=== PATIENT | male | born 1960 | race Caucasian/White ===

== ENCOUNTER 2019-07-02 01:12 | Emergency (ER) | payer MEDICAID ==
[~2019-07-02] VITALS: Ht 157.5 cm; Wt 55.3 kg
[2019-07-02 01:14] VITALS: BP 138/98
--- NOTE | 2019-07-02 01:15 | NUR ---
PT WILFREDO FRENCHS. TAKEN TO BED 4
--- NOTE | 2019-07-02 01:15 | NUR ---
Pt bib BLS ambulance from home c/o Lt flank pain. Pt no complains of CP, SOB. Pt hook on monitor, gowned, and pt care to Meghana ANDUJAR.
--- NOTE | 2019-07-02 01:23 | NUR ---
58Y/O MALE BROUGHT INTO ER BY S 491. BLS STATES PT WAS PICKED UP FROM A RESIDENTIAL HOME IN [place]. PT ASKED BROTHER TO [id number] DUE TO HAVING LEFT FLANK PAIN. PT STATES LEFT FLANK PAIN IS 7/10, AND HAS HAD X 1DAY. DENIES INJURY/TRAUMA, PAIN RADIATING TO ANY OTHER LOCATION IN THE BODY. DENIES, BACK PAIN, SOB, ANY DIFFICULTY WITH URINATION, OR UPPER OR LOWER ABDOMINAL PAIN. DENIES N/V/D. R/R EQUAL AND UNLABORED. C/O HEADACHE, AND SORE THROAT. PT'S HANDS ARE COVERED IN WHAT LOOKS LIKE BLACK SPRAY PAINT. ALL FOUR EXTREMITIES ARE INVOLUNTARILY JERKING. PT STATES HE IS HOMELESS. PT STATES HE IS NON-COMPLIANT WITH MEDICATION REGIMEN. SIDE RAIL X2, WILL CONTINUE TO MONITOR. NKDA PMHX: YUE DISEASE; HTN
--- NOTE | 2019-07-02 01:28 | NUR ---
Dr. Hinson examining patient.
--- NOTE | 2019-07-02 01:45 | NUR ---
PT GIVEN MEAL. IN BED EATING FOOD, SIDE RAIL X 2 WILL CONTINUE TO MONITOR, BED IN LOW POSITION
--- NOTE | 2019-07-02 02:24 | NUR ---
PT LAYING IN BED ALL FOUR EXTREMITIES JERKING INVOLUNTARY. VSS. SIDE RAIL X2, BED IN LOW POSITION WILL CONTINUE TO MONITOR
--- NOTE | 2019-07-02 03:00 | NUR ---
Pt wanted taxi voucher. Yeison Montalvo made aware and taxi voucher given. Taxi cab was contacted and the ETA will take times as no milk truck driver available due to self quarantine and stay home order. Will do follow up call to update the pt and his family. PRATIMA Kowalski and the pt made aware. Pt given sandwitch and juices/taken/eaten by the pt.
--- NOTE | 2019-07-02 03:08 | NUR ---
PT SLEEPING, R/R EQUAL,AND UNLABORED. ALL FOUR EXTREMITIES ARE NOT JERKING INVOLUNTARY AT THIS TIME. WILL CONTINUE TO MONITOR, BED IN LOW POSITION, SIDERAIL X2
[2019-07-02 06:30] VITALS: BP 138/98
--- NOTE | 2019-07-02 06:30 | NUR ---
Patient discharged with v/s stable. Written and verbal after care instructions given and explained. Patient verbalized understanding. WHEELCHAIR to car. All questions addressed prior to discharge. Advised to follow up with PMD.
--- NOTE | 2019-07-02 06:30 | NUR ---
PT D/C AND TAKEN IN TAXI TO [facility] IN [place]. PT IS CURRENTLY STAYING THERE IN A LONGTERM.
== END 2019-07-02 06:30 | disposition home or self-care (01) ==
LOC: MED 01:12
DX: R10.9 Unspecified abdominal pain (principal); F15.10 Other stimulant abuse, uncomplicated; Z59.0 Homelessness
CPT/HCPCS: 82948; 99283

== ENCOUNTER 2021-01-01 12:10 | Inpatient (IN) | payer MEDICAID, SELFPAY ==
[~2021-01-01] VITALS: Ht 160 cm; Wt 56.2 kg
[2021-01-01 12:20] VITALS: BP 131/74
--- NOTE | 2021-01-01 12:20 | NUR ---
60 Y/O MALE BIB CAREGIVER FOR POSS DEHYDRATION AND MALNOURISHED. CAREGIVER AT BEDSIDE ONLY ABLE TO GIVE MIN INFORMATION. PT UNABLE TO CONTROL MOVEMENTS. PER CAREGIVER, PT INGESTS METH AND 2 PINTS OF HARD LIQUOR PERDAY. UNABLE TO AMBULATE WITHOUT ASSISTANCE. UNABLE TO ANSWER SIMPLE YES OR NO QUESTIONS. POOR HISTORIAN. PMHX: YUE'S, ALCOHOL ABUSE, METH ABUSE ALLERGIES: UNKNOWN HOME MEDICATIONS: UNKNOWN.
--- NOTE | 2021-01-01 12:38 | NUR ---
ERMD AT BEDSIDE TO ASSESS PT
[2021-01-01] MEDS ORDERED: HALOPERIDOL IM 5 MG/ML VIAL IM ONE (12:45)
[2021-01-01] MEDS ORDERED: NACL 0.9% 1,000 ML IV ONE (12:45)
[2021-01-01] MEDS ORDERED: LORazepam 2 MG/ML VIAL IM ONE (12:45)
--- NOTE | 2021-01-01 12:49 | NUR ---
ERMD AT BEDSIDE TO ASSESS PT
--- NOTE | 2021-01-01 13:51 | NUR ---
20 G IV ESTABLISHED TO Daren RAINEY SAMPLE COLLECTED ALONG WITH LAB SAMPLES VIA IV AND HANDED TO JUSTIN ALEMAN TECH.
[2021-01-01 14:00] LABS: BASOPHILS # (AUTO) 0.1 K/uL (0.00-0.22); EOSINOPHILS # (AUTO) 0.1 K/uL (0-0.4); HEMATOCRIT 34.1 % (36-52); HEMOGLOBIN 11.5 g/dL (12.0-18.0); LYMPHOCYTES # (AUTO) 1.9 K/uL (2.0-11.5); LYMPHOCYTES % (AUTO) 24.2 % (20.5-51.1); MEAN CORPUSCULAR HEMOGLOBIN 30 pg (27-31); MEAN CORPUSCULAR HGB CONC 34 g/dL (33-37); MEAN CORPUSCULAR VOLUME 90.1 fL (80-94); MONOCYTES # (AUTO) 0.9 K/uL (0.8-1.0); MONOCYTES % (AUTO) 11.9 % (1.7-9.3); NEUTROPHILS # (AUTO) 4.9 K/uL (1.8-7.7); NEUTROPHILS % (AUTO) 61.9 % (42.2-75.2); PLATELET COUNT (AUTO) 436 K/uL (140-450); RED BLOOD CELL COUNT(AUTO) 3.79 MIL/uL (4.20-6.10); RED CELL DISTRIBUTION WIDTH 15.4 % (11.6-13.7)
[2021-01-01 14:32] LABS: ALBUMIN 3.6 g/dL (3.4-5.0); ANION GAP 12.1 (8-16); CARBON DIOXIDE 27.9 mmol/L (21-32); CREATININE 0.8 mg/dL (0.6-1.3); TOTAL BILIRUBIN 0.6 mg/dL (0.0-1.0)
--- NOTE | 2021-01-01 14:48 | NUR ---
PT TAKEN TO CT FOR EXAM
[2021-01-01] MEDS ORDERED: LORazepam 2 MG/ML VIAL IVP PRN (15:35)
[2021-01-01] MEDS ORDERED: HYDROcodone/APAP 5/325 MG 1 TAB TAB PO PRN (15:35)
[2021-01-01] MEDS ORDERED: MORPHINE SULFATE 2 MG/ML SYR IVP PRN (15:35)
[2021-01-01] MEDS ORDERED: LISI2.5T12 PO (15:53)
--- NOTE | 2021-01-01 16:05 | NUR ---
PT HAS 506$ VERIFIED BY SECURITY AND DAVID AISLINN, NEXT OF KIN BROTHER (FABIO) TO SAFEGAURD IT FOR HIM.
--- NOTE | 2021-01-01 16:18 | NUR ---
Patient will be admitted to care of Dr Prado. Admited to TELE. Will go to room 113 A. Belongings list completed. Report to .
--- NOTE | 2021-01-01 16:20 | NUR ---
RECEIVED REPORT FROM [facility]
--- NOTE | 2021-01-01 16:34 | NUR ---
PATIENT AWAKE. BREATHING EVEN AND UNLABORED. PATIENT NOTED TO BE AGGRESSIVE. NO ABNORMAL HEART SOUNDED NOTED. LUNG SOUNDS CLEAR. BOWEL SOUNDS HEARD IN ALL FOUR QUADRANTS. PATIENT SKIN IS WARM TO TOUCH. PATIENT DIFFICULT TO ASSESS MINIMAL REPOSE. WILL RESPOND YES AND NO TO SOME QUESTIONS. PATIENT REQUIRES REORIENTATION. EDUCATED PATIENT TO ROOM ENVIRONMENT. PATIENT DOES NOT VERBALIZE UNDERSTANDING. CALL LIGHT WITHIN REACH. ALL SAFETY MEASURES IN PLACE. WILL CONTINUE TO MONITOR.
[2021-01-01 17:10] LABS: APPEARANCE,URINE CLEAR (CLEAR); BILIRUBIN,URINE NEGATIVE (NEGATIVE); BLOOD, URINE TRACE-I (NEGATIVE); COLOR,URINE YELLOW (YELLOW); LEUKOCYTE ESTERASE ,URINE NEGATIVE (NEGATIVE); NITRITE, URINE NEGATIVE (NEGATIVE); PH,URINE 6.5 (5.0-9.0); UGLUCOSE NEGATIVE (NEGATIVE)
--- NOTE | 2021-01-01 18:05 | NUR ---
PATIENT SLEEPING. NO ACUTE DISTRESS NOTED. BREATHING EVEN AND UNLABORED. CALL LIGHT WITHIN REACH. ALL SAFETY MEASURES IN PLACE. WILL CONTINUE TO MONITOR.
--- NOTE | 2021-01-01 19:15 | NUR ---
ENDORSED TO SALES ACCOUNT MANAGER NURSE ON CONTINUITY OF CARE. PATIENT SLEEPING. PATIENT STABLE. CALL LIGHT WITHIN REACH. SAFETY MEASURES IN PLACE.
--- NOTE | 2021-01-01 19:25 | NUR ---
RECEIVED REPORT FROM ELISE ANDUJAR FOR CONTINUITY OF CARE. PT SITTING UP AAOX2. NO APPARENT S/S OF ACUTE DISTRESS. BREATHING EVEN AND UNLABORED ON RA WITH O2 SAT OF 97%. NO C/O CP, SOB OR PAIN. L AC 20G INTACT/PATENT. POC AND WHITE COMMUNICATION BOARD UPDATED. BED IN LOW/LOCKED POSITION. CALL LIGHT WITHIN REACH. PT ENCOURAGED TO CALL FOR ANY NEEDS/ASSISTANCE. WILL CONTINUE TO MONITOR.
[2021-01-01 20:00] VITALS: BP 141/91
[2021-01-01 22:30] LABS: BARBITURATE, URINE NEGATIVE ng/ml (NEG <=200); BENZODIAZEPINE, URINE POSITIVE ng/mL (NEG <=200); CANNABINOID, URINE NEGATIVE ng/mL (NEG <=50); COCAINE, URINE NEGATIVE ng/mL (NEG <=300)
[2021-01-01 22:31] LABS: OPIATE, URINE NEGATIVE ng/mL (NEG <=2000); PHENCYCLIDINE SCREEN,URINE NEGATIVE ng/mL (NEG <=25)
[2021-01-02] VITALS: BP 141/75
[2021-01-02] MEDS ORDERED: ONDANSETRON 4 MG/2 ML VIAL IM/IVP PRN (01:25)
[2021-01-02] MEDS ORDERED: ACETAMINOPHEN 325 MG TAB PO PRN (01:25)
[2021-01-02] MEDS ORDERED: HYDROcodone/APAP 5/325 MG 1 TAB TAB PO PRN (01:25)
[2021-01-02] MEDS: NACL 0.9% 1,000 ML IV SCH ×3 (01:25→18:45)
[2021-01-02] MEDS ORDERED: ZOLPIDEM 5 MG TAB PO PRN (01:25)
[2021-01-02] MEDS ORDERED: DOCUSATE SODIUM 100 MG GELCAP PO PRN (01:25)
[2021-01-02 04:00] VITALS: BP 119/73
[2021-01-02 06:54] LABS: CREATININE 0.7 mg/dL (0.6-1.3)
[2021-01-02 06:59] LABS: BASOPHILS # (AUTO) 0.1 K/uL (0.00-0.22); BASOPHILS % (AUTO) 0.8 % (0.0-2.0); EOSINOPHILS # (AUTO) 0.2 K/uL (0-0.4); EOSINOPHILS % (AUTO) 3.3 % (0.0-4.0); HEMATOCRIT 36.4 % (36-52); HEMOGLOBIN 12.2 g/dL (12.0-18.0); LYMPHOCYTES # (AUTO) 2.1 K/uL (2.0-11.5); LYMPHOCYTES % (AUTO) 29.2 % (20.5-51.1); MAGNESIUM 2.2 mg/dL (1.8-2.4); MEAN CORPUSCULAR HEMOGLOBIN 31 pg (27-31); MEAN CORPUSCULAR HGB CONC 34 g/dL (33-37); MEAN CORPUSCULAR VOLUME 91.4 fL (80-94); MONOCYTES # (AUTO) 0.7 K/uL (0.8-1.0); MONOCYTES % (AUTO) 10.2 % (1.7-9.3); NEUTROPHILS # (AUTO) 4.2 K/uL (1.8-7.7); NEUTROPHILS % (AUTO) 56.5 % (42.2-75.2); PHOSPHORUS 3.1 mg/dL (2.5-4.9); PLATELET COUNT (AUTO) 443 K/uL (140-450); RED BLOOD CELL COUNT(AUTO) 3.99 MIL/uL (4.20-6.10); RED CELL DISTRIBUTION WIDTH 15.5 % (11.6-13.7); WHITE BLOOD COUNT (AUTO) 7.4 K/uL (4.8-10.8)
--- NOTE | 2021-01-02 07:02 | NUR ---
REPORT GIVEN TO ELISE ANDUJAR FOR CONTINUITY OF CARE. NO APPARENT S/S OF ACUTE DISTRESS. BREATHING EVEN AND UNLABORED. BED IN LOW/LOCKED POSITION. CALL LIGHT WITHIN REACH. ALL NEEDS MET AT THIS TIME.
[2021-01-02 07:07] LABS: CHOL/HDL RATIO 2.3 (1-4.5); THYROID STIMULATING HORMONE 1.27 uIU/mL (0.34-3.74)
[2021-01-02 07:09] LABS: PROTHROMBIN TIME 9.9 secs (10.8-13.4)
--- NOTE | 2021-01-02 07:15 | NUR ---
RECEIVED REPORT FROM CARE AID NURSE FOR CONTINUITY OF CARE. PATIENT SLEEPING. BREATHING EVEN AND UNLABORED. NO ACUTE DISTRESS NOTED. CALL LIGHT WITHIN REACH. SAFETY MEASURES IN PLACE. WILL CONTINUE TO MONITOR.
[2021-01-02 08:00] VITALS: BP 112/65
[2021-01-02] MEDS: lisinopriL 5 MG TAB PO SCH (09:00)
--- NOTE | 2021-01-02 09:00 | NUR ---
LISINOPRIL HELD DUE TO PATIENT BP BEING LOW 112/65
--- NOTE | 2021-01-02 09:15 | NUR ---
PATIENT HAS BEEN SCREENED AND CATEGORIZED HIGH NUTRITION RISK. PATIENT WILL BE SEEN WITHIN 1-2 DAYS OF ADMISSION. 01/02/21-01/03/[address]
--- NOTE | 2021-01-02 09:26 | NUR ---
PATIENT SLEEPING. NO ACUTE DISTRESS NOTED. BREATHING EVEN AND UNLABORED. CALL LIGHT WITHIN REACH. ALL SAFETY MEASURES IN PLACE. WILL CONTINUE TO MONITOR.
--- NOTE | 2021-01-02 11:11 | NUR ---
PATIENT AWAKE. PATIENT CONTINUE TO HAVE INVOLUNTARY MOVEMENTS . PATIENT DENIES PAIN AT THIS TIME. CALL LIGHT WITHIN REACH. ALL SAFETY MEASURES IN PLACE. WILL CONTINUE TO MONITOR.
[2021-01-02 12:00] VITALS: BP 126/68
--- NOTE | 2021-01-02 13:29 | NUR ---
PATIENT AWAKE. PATIENT CONTINUE TO HAVE INVOLUNTARY MOVEMENTS . PATIENT DENIES PAIN AT THIS TIME. PATIENT REQUIRES REORIENTATION. CALL LIGHT WITHIN REACH. ALL SAFETY MEASURES IN PLACE. WILL CONTINUE TO MONITOR.
--- NOTE | 2021-01-02 13:39 | NUR ---
LATE ENTRY- SODIUM CHLORIDE IV FLUIDS DISCONTINUED AT 1618.
--- NOTE | 2021-01-02 14:28 | NUR ---
DC PLANNING: THE PATIENT PRESENTED TO THE ER WITH C/O DECREASED PO INTAKE. THE PATIENT HAS A H/O [place] AND HTN, AND IS CURRENTLY HOMELESS. CM AND SW SPOKE WITH THE PATIENTS BROTHER FABIO ([phone]) BY PHONE REGARDING THE PATIENTS MEDICAL HISTORY AND LIVING SITUATION. THE PATIENT STARTED THE INTAKE PROCESS WITH [facility] BUT FABIO IS NOT SURE IS HE COMPLETED IT. FABIO STATES THAT HIS GOAL IS FOR HOUSING FOR HIS BROTHER AND HIMSELF, HE HAS BEEN FOLLOWED BY [facility] FOR AT LEAST 2 YEARS BUT HAS NO PURSUED HOUSING THROUGH THEM SO HE COULD TAKE CARE OF HIS BROTHER. HE AND HIS BROTHER STAY AT THE [facility] IN [place] ([address] [place] [address]) 3-4 DAYS/WEEK AND SLEEP ON THE STREET THE OTHER DAYS. THE PATIENT DOES NOT ALWAYS STAY WITH HIS BROTHER, IT IS UNCERTAIN WHERE HE SLEEPS DURING THOSE TIMES. FABIO STATES THAT THE PATIENT DOES DRINK ALCOHOL REGUARLY, BEER OR VODKA, BUT DOES NOT USE DRUGS DAILY. BOTH ARE ON SSI AND FABIO RECEIVES FOOD STAMPS. HE STATES THAT THE PATIENT USES A WC AND IS ABLE TO MOVE HIMSELF AROUND WITHOUT ASSISTANCE. FABIO ALSO STATES THAT THEY HAVE OTHER FRIENDS WHO ARE HOMELESS AND THEY CHECK ON THE PATIENT WHEN FABIO IS NOT PRESENT TO OFFER HIM FOOD AND SOMETHING TO DRINK. THE PATIENT WAS GOING TO THE [facility] BUT HAS NOT SEEN A DOCTOR SINCE HE WAS DIAGNOSED WITH YUE'S ABOUT FIVE YEARS AGO. FABIO STATES THAT THEIR SISTER AND FATHER BOTH HAD YUE'S AND HAVE SINCE . THE PATIENT HAS ADULT CHILDREN WHO ARE ESTRANGED, AND THEIR MOTHER IS STILL ALIVE. FABIO CAN STAY WITH THEIR MOTHER IF HE CHOOSES BUT THERE IS A RESTRAINING ORDER AGAINST THE PATIENT SO FABIO DOES NOT TO STAY WITH HER SO HE CAN CARE FOR THE PATIENT. THE [facility] THAT THEY SOMETIMES STAY IN WAS RUN BY A COREMAKER APPRENTICE WHO 2 WEEKS AGO, AND THE PASTORS SON IS ALLEGEDLY GOING TO SELL IT, SO THAT WILL NOT BE A SENIOR CARE OPTION FOR SHELTERING. THE ASHLEY HIDALGO WILL REACH OUT TO [facility] TO SEE IF THEY CAN OFFER ANY OPTIONS FOR SNF PLACEMENT, AND CM WILL WORK WITH INSURANCE TO SEE IF THEY WILL AUTHORIZE SNF PLACEMENT. FABIO STATES THAT THE PATIENT IS WILLING TO GO SNF AND THAT THE PATIENT HAS STATED THAT HE DOESN'T WANT TO ON THE STREET. CM WILL FOLLOW FOR NEEDS. Addendum: 01/03/21 at 1308 by Kimberley Lopez CM DC PLANNING: ERROL AND ASHLEY MET WITH ROCKY OWENS, MENTAL HEALTH SPECIALIST FROM [facility]. HE STATES THAT THE PATIENT HAS BEEN AT [facility] 8-9 TIMES VERY RECENTLY AND HAS BEEN DC'D BACK TO THE STREET EACH TIME. DISCUSSED OPTIONS OF SNF VERSUS THE PATIENT GOING WITH FAMILY, ALSO CONTACTING THE [facility] TO SEE IF THEY HAVE RESOURCES. ERROL WILL FOLLOW UP WITH THE PATIENTS INSURANCE FOR POTENTIAL SNF PLACEMENT. ERROL ALSO DISCUSSED THE PLAN WITH THE ATTENDING MD, AND WILL CONTINUE TO FOLLOW FOR NEEDS. Addendum: 01/03/21 at 1731 by Teresa Durham CM DC PLANNING PATIENT IS A 60-YEAR-OLD MALE ADMITTED TO THE [facility]/ED ON 01/01/2021 DUE TO DEHYDRATION AND FAILURE TO THRIVE. SW MET WITH PATIENT AT BEDSIDE TO DISCUSS AND GATHER PATIENTS COLLATERAL INFORMATION. PATIENT WAS AWAKE, HOWEVER STATED FEELING TIRED AND SLEEPY SW ASKED PATIENT IF THESE SOAKER SODA WORKER CAN CONTACT HER BROTHER LISTED HIS EMERGENCY CONTACT PT. AGREED. SW CONTACTED PATIENT'S BROTHER FABIO CLEANING VIA TELEPHONIC CALL AT . PER FABIO PATIENT IS HOMELESS LIVING WITH HIM AT A [facility] IN [place] WHERE THEIR COREMAKER APPRENTICE HAS ALLOWED THEM TO STAY THERE FOR SOMETIME UNTIL RECENTLY THE [facility] HAS CHANGE OF MANAGEMENT AND WILL BE SOLD AT ONE POINT THEREFORE; PATIENT AND BROTHER FABIO WILL HAVE TO FIND A PLACE TO STAY IN THE FUTURE. PATIENT HOWEVER; HAS A DIAGNOSIS OF YUE'S DISEASE AND IS UNABLE TO CARE FOR HIM SELF WHEN SICK HE IS UNABLE TO WALK AND GET HIS BASICS NEEDS MET. PATIENT IS MALNOURISHED AND DIHYDRATED HAS HAD SEVERAL HOSPITALIZATIONS AT [facility] OVER THE PAST MONTHS. SW PROVIDED INFORMATION AND RESOURCES TO PATIENT'S BROTHER AND DISCUSS DC PLAN. 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 PER PATIENT'S BROTHER FABIO HE HAS APPLY FOR RESOURCES AND SERVICES IN [facility] FOR PATIENT'S MENTAL HEALTH AND SUBSTANCE ABUSE AND IS IN PROCESS TO SEE WHAT RESOURCES CAN BE GETTING FOR MORE STABLE HOUSING, HOWEVER PATIENT'S MEDICAL STATUS IS GETTING WORSE AND IS IN NEED OF HIGHER LEVEL OF CARE AT THIS TIME. SW PROVIDED SOME INFORMATION TO PATIENT'S BROTHER AND GOT INFORMATION TO SPEAK TO [facility] MENTAL HEALTH SPECIALIST, ROCKY OWENS. PER PATIENT'S BROTHER FABIO CLEANING PATIENT DO NOT HAVE ADVANCE DIRECTIVES AND HE IS HIS ONLY EMERGENCY CONTACT. PER PATIENT'S BROTHER PATIENT IS ATTENDING TO [facility] IN [place] TO CARE FOR HIS MEDICAL NEEDS HOWEVER DO NOT FOLLOW UP NEEDED EVEN THO HE CAN GET MEDICATIONS PATIENT MAY NOT BE TAKING THEM CONSISTENTLY, PATIENT HAS A WHEELCHAIR HIS ONLY DME AND IF HE IS TO DC PATIENT CAN GO BACK TO STAY AT THE [facility] IN [place] WITH HIS BROTHER IF HE IS NOT IN NEED FOR HIGHER LEVEL OF CARE POSSIBLY A SNF DUE TO HIS MEDICAL CONDITIONS. SW THANKED PATIENT'S BROTHER FABIO FOR HIS INFORMATION AND WILL FOLLOW UP NEEDED Addendum: 01/03/21 at 1738 by Teresa Durham CM DC PLANNING ROCKY OWENS MENTAL HEALTH SPECIALIST FROM [facility] CAME TO [facility] IN REQUEST TO MEET WITH CM AND ASHLEY ABOUT PATIENT AND HIS CONTINUANCE OF CARE. SW AND CM HAD VERBAL CONSENT TO SPEAK TO ROCKY AND COORDINATE SERVICES PROVIDED TO PATIENT. PER ROCKY HE IS WORKING WITH HIS SOCCER BALL ASSEMBLER AND MENTAL HEALTH TEAM ON GETTING PATIENT'S RESOURCES HOWEVER HIS MEDICAL NEED DUE TO HIS DIAGNOSIS WITH YUE DISEASE IS GETTING IN THE WAY OF THEIR TREATMENT AND CAME TO ADVOCATE FOR PATIENT TO SEE IF MAY BE A HIGHER LEVEL OF CARE NEEDS TO BE ADDRESS BEFORE THEIR TREATMENT. ASHLEY AND ERROL DISCUSS ALTERNATIVES AND POSSIBLE RESOURCES. ROCKY AGREED TO REACH OUT THE FAMILY AND OTHER RESOURCES TO ASSIST PATIENT AND HIS NEEDS. ASHLEY AND CM WILL FOLLOW UP NEEDED.
--- NOTE | 2021-01-02 15:01 | NUR ---
01/02/21 RD INITIAL ASSESSMENT COMPLETED PLEASE REFER TO NUTRITION ASSESSMENT UNDER CARE ACTIVITY FOR ESTIMATED NUTRITIONAL NEEDS. 1. RECOMMEND SWALLOW EVALUATION PER DR. RAMOS CONSULT 2. RECOMMEND DOWNGRADING FOOD TEXTURE D/T CHOREA 2. DOUBLE PORTIONS WILL BE PROVIDED 3. RECOMMEND ENSURE ONCE DAILY 3. RD TO FOLLOW-UP 5-7 DAYS, LOW RISK VANESSA MORALES, RD
--- NOTE | 2021-01-02 15:10 | NUR ---
PATIENT AWAKE. PATIENT CONTINUE TO HAVE INVOLUNTARY MOVEMENTS . PATIENT DENIES PAIN AT THIS TIME. PATIENT CONTINUE TO COME OUT OF ROOM REORIENTATION REQUIRED. CALL LIGHT WITHIN REACH. ALL SAFETY MEASURES IN PLACE. WILL CONTINUE TO MONITOR.
[2021-01-02 16:00] VITALS: BP 124/62
[2021-01-02] MEDS: HALOPERIDOL 5 MG TAB PO SCH (17:27)
--- NOTE | 2021-01-02 17:30 | NUR ---
ENDORSED TO PRATIMA STRICKLAND FOR CONTINUITY OF CARE. PATIENT STABLE.
--- NOTE | 2021-01-02 17:32 | NUR ---
RECEIVED PATIENT FROM PRATIMA OLIVARES FOR CONTINUITY OF CARE. PT IS STABLE.
--- NOTE | 2021-01-02 18:06 | NUR ---
PT WAS SEEN FOR DYSPHAGIA. PT WAS ABLE TO SAFELY SWALLOW PUREE DIET WITH THIN LIQUID. HOWEVER, PT IS NOT AWARE ABOUT THE SPEED AND AMOUNT OF FOOD TO INTAKE IN THE ORAL CAVITY. RECOMMENDATION PUREE DIET WITH THIN LIQUID SUPERVISION DURING MEAL TIME
--- NOTE | 2021-01-02 18:15 | NUR ---
ST EVALUATED PATIENT'S SWALLOW. ST ORDERED PATIENT TO BE ON PUREE DIET.
--- NOTE | 2021-01-02 19:24 | NUR ---
ENDORSED TO FRONT OFFICE SECRETARY NURSE FOR CONTINUITY OF CARE. PT IS STABLE.
--- NOTE | 2021-01-02 19:25 | NUR ---
RECEIVED REPORT FROM AM SHIFT NURSE FOR CONTINUITY OF CARE. PT ON BED ASLEEP, NO S/S OF DISTRESS. BREATHING IS EVEN AND UNLABORED ON RA. IV ON L AC 20 G SALINE LOCKED. CALL LIGHT WITHIN REACH. ALL SAFETY MEASURES IN PLACE. WILL CONTINUE TO MONITOR.
[2021-01-02 20:00] VITALS: BP 127/77
--- NOTE | 2021-01-02 21:40 | NUR ---
CHECKED ON PT, NO S/S OF DISTRESS. DENIES ANY PAIN. NO COMPLAINTS MADE. ALL SAFETY MEASURES IN PLACE.
--- NOTE | 2021-01-03 00:10 | NUR ---
MADE ROUNDS ON PT, ASLEEP. RESPIRATIONS IS EVEN AND UNLABORED. ALL SAFETY MEASURES IN PLACE. WILL CONTINUE TO MONITOR.
[2021-01-03] MEDS: NACL 0.9% 1,000 ML IV SCH ×2 (02:18→11:16)
--- NOTE | 2021-01-03 02:20 | NUR ---
CHANGED PT GOWN. PROVIDED WARM BLANKET. NEEDS ATTENDED. CALL LIGHT WITHIN REACH. WILL CONTINUE TO MONITOR.
[2021-01-03 04:00] VITALS: BP 137/87
--- NOTE | 2021-01-03 04:30 | NUR ---
MADE ROUNDS ON PT. NO S/S OF DISTRESS. BREATHING IS EVEN AND UNLABORED. ALL SAFETY MEASURES IN PLACE.
--- NOTE | 2021-01-03 05:40 | NUR ---
PT PULLED OUT HIS IV. REFUSED RE-INSERTION. CHARGE NURSE AWARE. WILL CONTINUE TO MONITOR.
--- NOTE | 2021-01-03 07:45 | NUR ---
PASSED ON BEDSIDE REPORT TO KIZZY URIBE RN. PT STABLE Addendum: 01/04/21 at 0819 by Tati Richter RN RN PUT THE WRONG DATE FOR SHIFT REPORT. I MEANT GAVE BEDSIDE REPORT TO KIZZY URIBE RN AT 01/04/21 AT 0756
--- NOTE | 2021-01-03 07:49 | NUR ---
ENDORSED TO AM SHIFT FOR CONTINUITY FOR CARE. PT IS STABLE.
--- NOTE | 2021-01-03 07:50 | NUR ---
RECEIVED REPORT FROM ANA TWISTING FRAME FIXER RN FOR CONTINUITY OF CARE. PT SITTING UP AAOX2. NO APPARENT S/S OF ACUTE DISTRESS. BREATHING EVEN AND UNLABORED ON RA WITH O2 SAT OF 97%. NO C/O CP, SOB OR PAIN. PATIENT HAS NO IV SINCE LAST NIGHT. POC AND WHITE COMMUNICATION BOARD UPDATED. BED IN LOW/LOCKED POSITION. CALL LIGHT WITHIN REACH. PT ENCOURAGED TO CALL FOR ANY NEEDS/ASSISTANCE.
[2021-01-03] MEDS: HALOPERIDOL 5 MG TAB PO SCH ×3 (08:20→16:22)
[2021-01-03] MEDS: lisinopriL 5 MG TAB PO SCH (08:21)
[2021-01-03 09:06] LABS: T4 (THYROXINE) 5.8 ug/dL (4.5-12.0)
--- NOTE | 2021-01-03 10:06 | NUR ---
PT IN BED NO COMPLAINS NO SOD NIOTED, PT ATE BREAKFAST AND GOT MORNING MEDICATION, NEW IV INSERTED IN RIGHT AC 22G FLUSHED AND RUNNIG NS 60ML/H, ALL SAFETY MEASURES ON PLACE CALLS LIGHT WITHI REACH
--- NOTE | 2021-01-03 12:13 | NUR ---
PT IN BED NO COMPLAINS NO SOD NIOTED, PT PULLED OUT HIS IV AND REFUSE TO INSERT NEW ONE, DR KIRSTIN DAVID INFORMED, ASKED TO HOLD ON AND NOT INSERT IV SINCE PATIENT REFUSING, PATIENT DRINKING WATER, AND ENCOURAGE TO KEEP HYDRATED AND DRINK ENOUGH WATER, WILL KEEP MONITORING ALL SAFETY MEASURES ON PLACE CALLS LIGHT WITHI REACH
[2021-01-03 12:20] VITALS: BP 128/72
--- NOTE | 2021-01-03 13:20 | NUR ---
PT IN BED NO SOD NOTED, PT REFUSE TO PUT THE OXYHYDROGEN WELDER ON, INFORMED MD, WILL KEEP MONITORING AND TRY AGAIN LATER
--- NOTE | 2021-01-03 13:21 | NUR ---
PT TRIED TO GET OUT OF BED, EDUCATED ABOUT FALL RISKS AND ENCORAGED TO CALL FOR HELP WHEN HE NEED ANYTHING, PT VERBALIZE UNDERSTANDING, ALL SAFETY MEASURES ON PLACE, CALLS LIGHT WITHIN REACH, EXPLAINED TO PATIENT TO PRESS CALL LIGHT WHEN NEED HELP. ALL NEEDS MEET AT THIS TIME, PATIENT HAS NO COMOLAINS, ALL SAFETY MEASURES ON PLACE, BED A;ARM ON, ARSLAN POSTED ON DOOR.
--- NOTE | 2021-01-03 15:53 | NUR ---
PT IN BED NO COMPLAINS NO SOD NIOTED, ALL SAFETY MEASURES ON PLACE CALLS LIGHT WITHI REACH
--- NOTE | 2021-01-03 17:52 | NUR ---
PT IN BED NO COMPLAINS NO SOD NOTED, ALL SAFETY MEASURES ON PLACE CALLS LIGHT WITHIN REACH
--- NOTE | 2021-01-03 19:34 | NUR ---
FULL BEDSIDE REPORT GIVEN TO AIRBRUSH ARTIST NURSE
--- NOTE | 2021-01-03 19:35 | NUR ---
RECEIVED BEDSIDE REPORT FROM AM SHIFT RN. SAFETY MEASURES IN PLACE, CALL LIGHT WITHIN REACH. ON ROOM AIR, URINAL AT BEDSIDE, NO IV SITE AT THIS MOMENT. A&O X2. PT STABLE. WILL CONTINUE TO MONITOR.
[2021-01-03 20:00] VITALS: BP 106/65
--- NOTE | 2021-01-03 20:30 | NUR ---
ATTEMPTED TO PUT ANOTHER IV SITE ON HIM. PT REFUSED. TOOK OFF TELE MONITOR , PT WAS BEING NON-COOPERATIVE.
--- NOTE | 2021-01-03 22:10 | NUR ---
PATIENT IS SLEEPING, NO SIGNS OF DISTRESS. WILL CONTINUE TO MONITOR. SAFETY MEASURES IN PLACE.
[2021-01-04] VITALS: BP 107/65
--- NOTE | 2021-01-04 01:40 | NUR ---
PT IS ASLEEP, NO SIGNS OF DISTRESS. WILL CONTINUE TO MONITOR
--- NOTE | 2021-01-04 03:20 | NUR ---
PT IS SLEEPING, NO SIGNS OF DISTRESS. PT STABLE. WILL CONTINUE TO MONITOR
[2021-01-04] MEDS: NACL 0.9% 1,000 ML IV SCH (03:25)
--- NOTE | 2021-01-04 07:45 | NUR ---
PASSED ON BEDSIDE REPORT TO AM SHIFT RN . PT STABLE
--- NOTE | 2021-01-04 07:46 | NUR ---
RECEIVED PT FROM NIGHT RN, PT IS AWAKE AND LYING ON THE BED, NON-COMPLIANT, AROUSABLE BUT NOT PLEASING, PT REFUSED TO HAVE AN IV LINE INSERTED, PT IS ON RA, NO SIGN OF DISTRESS NOTED AND WILL CONTINUE TO MONITOR PT.
[2021-01-04] MEDS: HALOPERIDOL 5 MG TAB PO SCH (09:00)
[2021-01-04] MEDS: lisinopriL 5 MG TAB PO SCH (09:00)
--- NOTE | 2021-01-04 10:00 | NUR ---
PT IS NON-COMPLIANT, REFUSED MEDICATIONS, SAYING HE DOES NOT NEED IT, VERBALIZED HE WANTS TO LEAVE AMA, WILL NOTIFY .
--- NOTE | 2021-01-04 11:00 | NUR ---
SPOKE TO DR. FELICIANO AND SAID THAT PT IS LEAVING AMA AND HE TALKED TO PT REGARDING THE RISKS AND BENEFITS BUT PT IS STILL PERSISTENT TO LEAVE THE HOSPITAL.
--- NOTE | 2021-01-04 11:50 | NUR ---
PT LEFT AGAINST MEDICAL ADVICE NOW, HS IS STILL TALKING TO PT BUT PT IGNORED AND JUST WALKED OUT OF THE BACK DOOR. PT WAS GIVEN BUS PASS, FOOD AND CLOTHES, PT IS AOX3, AND IS STABLE CONDITION NOW.
[2021-01-04 11:53] VITALS: BP 113/65
== END 2021-01-04 11:55 | disposition left against medical advice (07) | DRG 52 ==
LOC: MED 12:10 → MTU 15:41
DX: G92.8 Other toxic encephalopathy (principal); R40.2342 Coma scale, best motor response, flexion withdrawal, at arrival to emergency department; R40.2122 Coma scale, eyes open, to pain, at arrival to emergency department; R62.7 Adult failure to thrive; E86.0 Dehydration; D64.9 Anemia, unspecified; G10 Huntington's disease; F15.90 Other stimulant use, unspecified, uncomplicated; I10 Essential (primary) hypertension; Z20.822 Contact with and (suspected) exposure to COVID-19; Z79.899 Other long term (current) drug therapy; Z68.22 Body mass index [BMI] 22.0-22.9, adult; Z59.00 Homelessness unspecified; Z71.51 Drug abuse counseling and surveillance of drug abuser; Z91.14 Patient's other noncompliance with medication regimen
CPT/HCPCS: 36415; 70450; 71045; 80048; 80053; 80305; 81003; 82140; 82150; 83036; 83605; 83690; 83735; 83880; 84100; 84134; 84436; 84443; 84484; 85025; 85610; 85730; 87081; 92610; 96360; 96372; 97110; 97112; 97163-GP; 97530; 99285; G0482; J1630; J2060; U0003

== ENCOUNTER 2021-01-05 07:18 | Inpatient (IN) | payer MEDICAID, SELFPAY ==
[~2021-01-05] VITALS: Ht 157.5 cm; Wt 51.7 kg
[~2021-01-05 07:18] MED LIST: LISI2.5T12 PO
[2021-01-05 07:24] VITALS: BP 158/69
[2021-01-05] MEDS ORDERED: AZITHROMYCIN 500 MG in DEXTROSE 5% 250 ML IV ONE (08:50)
[2021-01-05 09:24] LABS: BASOPHILS # (AUTO) 0.1 K/uL (0.00-0.22); BASOPHILS % (AUTO) 1.4 % (0.0-2.0); EOSINOPHILS % (AUTO) 0.5 % (0.0-4.0); HEMATOCRIT 40.1 % (36-52); HEMOGLOBIN 13.3 g/dL (12.0-18.0); LYMPHOCYTES # (AUTO) 1.6 K/uL (2.0-11.5); LYMPHOCYTES % (AUTO) 23.3 % (20.5-51.1); MEAN CORPUSCULAR HEMOGLOBIN 30 pg (27-31); MEAN CORPUSCULAR HGB CONC 33 g/dL (33-37); MEAN CORPUSCULAR VOLUME 91.1 fL (80-94); MONOCYTES # (AUTO) 0.5 K/uL (0.8-1.0); NEUTROPHILS # (AUTO) 4.5 K/uL (1.8-7.7); NEUTROPHILS % (AUTO) 66.8 % (42.2-75.2); PLATELET COUNT (AUTO) 535 K/uL (140-450); RED CELL DISTRIBUTION WIDTH 15.5 % (11.6-13.7); WHITE BLOOD COUNT (AUTO) 6.7 K/uL (4.8-10.8)
[2021-01-05 09:27] LABS: ANION GAP 10.6 (8-16); CARBON DIOXIDE 29.8 mmol/L (21-32); CREATININE 0.7 mg/dL (0.6-1.3); POTASSIUM 4.4 mmol/L (3.5-5.1)
[2021-01-05] MEDS ORDERED: cefTRIAXone 1,000 MG VIAL ONE (09:31)
[2021-01-05] MEDS ORDERED: AZITHROMYCIN 500 MG INJ VIAL IV ONE (09:37)
[2021-01-05] MEDS ORDERED: NACL 0.9% 1,500 ML IV ONE (09:40)
[2021-01-05 09:50] LABS: BARBITURATE, URINE NEGATIVE ng/ml (NEG <=200); BENZODIAZEPINE, URINE POSITIVE ng/mL (NEG <=200); CANNABINOID, URINE NEGATIVE ng/mL (NEG <=50); COCAINE, URINE NEGATIVE ng/mL (NEG <=300); OPIATE, URINE NEGATIVE ng/mL (NEG <=2000); PHENCYCLIDINE SCREEN,URINE NEGATIVE ng/mL (NEG <=25)
[2021-01-05] MEDS ORDERED: POTASSIUM CHLORIDE 10 MEQ TABER PO PRN (13:35)
[2021-01-05] MEDS ORDERED: DOCUSATE SODIUM 100 MG GELCAP PO PRN (13:35)
[2021-01-05] MEDS ORDERED: ONDANSETRON 4 MG/2 ML VIAL IM/IVP PRN (13:35)
[2021-01-05] MEDS ORDERED: HYDROcodone/APAP 5/325 MG 1 TAB TAB PO PRN (13:35)
[2021-01-05] MEDS ORDERED: SODIUM PHOS / POTASSIUM PHOS 1 PKT PDR PO PRN (13:35)
[2021-01-05] MEDS ORDERED: MORPHINE SULFATE 2 MG/ML SYR IVP PRN (13:35)
[2021-01-05] MEDS ORDERED: ACETAMINOPHEN 325 MG TAB PO PRN (13:35)
[2021-01-05] MEDS ORDERED: MAGNESIUM OXIDE 400 MG TAB PO PRN (13:35)
[2021-01-05 14:24] LABS: MAGNESIUM 2.4 mg/dL (1.8-2.4); PHOSPHORUS 3.4 mg/dL (2.5-4.9)
[2021-01-05 16:00] VITALS: BP 115/60
[2021-01-05] MEDS: NACL 0.9% 1,000 ML IV SCH (16:22)
[2021-01-05 20:00] VITALS: BP 119/72
[2021-01-06] VITALS: BP 126/72
[2021-01-06 08:00] VITALS: BP 132/80
[2021-01-06] MEDS: AZITHROMYCIN 250 MG TAB PO SCH (08:37)
[2021-01-06] MEDS: HALOPERIDOL 5 MG TAB PO SCH ×3 (08:37→16:57)
[2021-01-06] MEDS: lisinopriL 5 MG TAB PO SCH (08:38)
[2021-01-06] MEDS: PANTOPRAZOLE 40 MG TABEC PO SCH (08:38)
[2021-01-06 12:00] VITALS: BP 123/71
[2021-01-06] MEDS: NACL 0.9% 1,000 ML IV SCH (12:59)
[2021-01-06 16:00] VITALS: BP 124/72
[2021-01-06 20:00] VITALS: BP 107/62
[2021-01-07 04:00] VITALS: BP 117/76
[2021-01-07 05:43] LABS: BASOPHILS # (AUTO) 0.1 K/uL (0.00-0.22); BASOPHILS % (AUTO) 1.4 % (0.0-2.0); EOSINOPHILS # (AUTO) 0.1 K/uL (0-0.4); EOSINOPHILS % (AUTO) 2.2 % (0.0-4.0); HEMATOCRIT 35.8 % (36-52); HEMOGLOBIN 11.9 g/dL (12.0-18.0); LYMPHOCYTES # (AUTO) 2.7 K/uL (2.0-11.5); LYMPHOCYTES % (AUTO) 41.7 % (20.5-51.1); MEAN CORPUSCULAR HEMOGLOBIN 30 pg (27-31); MEAN CORPUSCULAR HGB CONC 33 g/dL (33-37); MEAN CORPUSCULAR VOLUME 90.7 fL (80-94); MONOCYTES # (AUTO) 0.6 K/uL (0.8-1.0); NEUTROPHILS % (AUTO) 45.7 % (42.2-75.2); PLATELET COUNT (AUTO) 435 K/uL (140-450); RED BLOOD CELL COUNT(AUTO) 3.95 MIL/uL (4.20-6.10); RED CELL DISTRIBUTION WIDTH 15.1 % (11.6-13.7); WHITE BLOOD COUNT (AUTO) 6.5 K/uL (4.8-10.8)
[2021-01-07 05:57] LABS: ANION GAP 11.3 (8-16); CARBON DIOXIDE 27.2 mmol/L (21-32); CREATININE 0.8 mg/dL (0.6-1.3); POTASSIUM 4.5 mmol/L (3.5-5.1)
[2021-01-07 08:00] VITALS: BP 129/72
[2021-01-07] MEDS: HALOPERIDOL 5 MG TAB PO SCH ×3 (09:03→17:45)
[2021-01-07] MEDS: PANTOPRAZOLE 40 MG TABEC PO SCH (09:04)
[2021-01-07] MEDS: AZITHROMYCIN 250 MG TAB PO SCH (09:04)
[2021-01-07] MEDS: lisinopriL 5 MG TAB PO SCH (09:05)
[2021-01-07] MEDS: NACL 0.9% 1,000 ML IV SCH (13:43)
[2021-01-07 16:00] VITALS: BP 130/74
[2021-01-08] VITALS: BP 112/63
[2021-01-08 05:57] LABS: ANION GAP 9.7 (8-16); CARBON DIOXIDE 30.5 mmol/L (21-32); CREATININE 0.7 mg/dL (0.6-1.3); POTASSIUM 4.2 mmol/L (3.5-5.1)
[2021-01-08 06:00] LABS: BASOPHILS # (AUTO) 0.1 K/uL (0.00-0.22); BASOPHILS % (AUTO) 1.1 % (0.0-2.0); EOSINOPHILS # (AUTO) 0.1 K/uL (0-0.4); EOSINOPHILS % (AUTO) 2.1 % (0.0-4.0); HEMATOCRIT 35.4 % (36-52); HEMOGLOBIN 11.4 g/dL (12.0-18.0); LYMPHOCYTES # (AUTO) 2.1 K/uL (2.0-11.5); LYMPHOCYTES % (AUTO) 33.4 % (20.5-51.1); MEAN CORPUSCULAR HEMOGLOBIN 30 pg (27-31); MEAN CORPUSCULAR HGB CONC 32 g/dL (33-37); MEAN CORPUSCULAR VOLUME 91.9 fL (80-94); MONOCYTES # (AUTO) 0.8 K/uL (0.8-1.0); MONOCYTES % (AUTO) 12.2 % (1.7-9.3); NEUTROPHILS # (AUTO) 3.2 K/uL (1.8-7.7); NEUTROPHILS % (AUTO) 51.2 % (42.2-75.2); PLATELET COUNT (AUTO) 446 K/uL (140-450); RED BLOOD CELL COUNT(AUTO) 3.85 MIL/uL (4.20-6.10); RED CELL DISTRIBUTION WIDTH 14.8 % (11.6-13.7); WHITE BLOOD COUNT (AUTO) 6.3 K/uL (4.8-10.8)
[2021-01-08 08:00] VITALS: BP 121/61
[2021-01-08] MEDS: HALOPERIDOL 5 MG TAB PO SCH ×3 (09:20→18:29)
[2021-01-08] MEDS: AZITHROMYCIN 250 MG TAB PO SCH (09:20)
[2021-01-08] MEDS: PANTOPRAZOLE 40 MG TABEC PO SCH (09:20)
[2021-01-08] MEDS: lisinopriL 5 MG TAB PO SCH (09:24)
[2021-01-08] MEDS: NACL 0.9% 1,000 ML IV SCH (14:04)
[2021-01-08 16:00] VITALS: BP 143/73
[2021-01-09] VITALS: BP 98/56
[2021-01-09 06:45] LABS: ANION GAP 7.2 (8-16); CARBON DIOXIDE 31.1 mmol/L (21-32); CREATININE 0.8 mg/dL (0.6-1.3); POTASSIUM 4.3 mmol/L (3.5-5.1)
[2021-01-09 06:54] LABS: BASOPHILS # (AUTO) 0.1 K/uL (0.00-0.22); BASOPHILS % (AUTO) 1.3 % (0.0-2.0); EOSINOPHILS # (AUTO) 0.1 K/uL (0-0.4); HEMATOCRIT 34.4 % (36-52); HEMOGLOBIN 11.6 g/dL (12.0-18.0); LYMPHOCYTES # (AUTO) 2.1 K/uL (2.0-11.5); LYMPHOCYTES % (AUTO) 31.8 % (20.5-51.1); MEAN CORPUSCULAR HEMOGLOBIN 31 pg (27-31); MEAN CORPUSCULAR HGB CONC 34 g/dL (33-37); MEAN CORPUSCULAR VOLUME 90.3 fL (80-94); MONOCYTES # (AUTO) 0.9 K/uL (0.8-1.0); NEUTROPHILS # (AUTO) 3.5 K/uL (1.8-7.7); NEUTROPHILS % (AUTO) 51.9 % (42.2-75.2); PLATELET COUNT (AUTO) 480 K/uL (140-450); RED BLOOD CELL COUNT(AUTO) 3.81 MIL/uL (4.20-6.10); RED CELL DISTRIBUTION WIDTH 15.2 % (11.6-13.7); WHITE BLOOD COUNT (AUTO) 6.7 K/uL (4.8-10.8)
[2021-01-09 08:00] VITALS: BP 124/75
[2021-01-09] MEDS: AZITHROMYCIN 250 MG TAB PO SCH (09:00)
[2021-01-09] MEDS: lisinopriL 5 MG TAB PO SCH (10:07)
[2021-01-09] MEDS: HALOPERIDOL 5 MG TAB PO SCH ×3 (10:07→17:38)
[2021-01-09] MEDS: PANTOPRAZOLE 40 MG TABEC PO SCH (10:07)
[2021-01-09] MEDS ORDERED: HALO1TAB99 PO (10:28)
[2021-01-09] MEDS ORDERED: CEPH-588 PO (10:28)
[2021-01-09] MEDS: NACL 0.9% 1,000 ML IV SCH (15:04)
[2021-01-09 16:00] VITALS: BP 143/73
[2021-01-09 20:00] VITALS: BP 113/68
[2021-01-10 04:00] VITALS: BP 123/73
[2021-01-10 06:13] LABS: ANION GAP 7.7 (8-16); CARBON DIOXIDE 29.3 mmol/L (21-32); CREATININE 0.9 mg/dL (0.6-1.3)
[2021-01-10 06:20] LABS: BASOPHILS # (AUTO) 0.1 K/uL (0.00-0.22); BASOPHILS % (AUTO) 1.3 % (0.0-2.0); EOSINOPHILS # (AUTO) 0.2 K/uL (0-0.4); EOSINOPHILS % (AUTO) 2.4 % (0.0-4.0); HEMATOCRIT 34.1 % (36-52); HEMOGLOBIN 11.4 g/dL (12.0-18.0); LYMPHOCYTES # (AUTO) 2.2 K/uL (2.0-11.5); LYMPHOCYTES % (AUTO) 29.2 % (20.5-51.1); MEAN CORPUSCULAR HEMOGLOBIN 30 pg (27-31); MEAN CORPUSCULAR HGB CONC 33 g/dL (33-37); MEAN CORPUSCULAR VOLUME 90.3 fL (80-94); MONOCYTES # (AUTO) 0.8 K/uL (0.8-1.0); MONOCYTES % (AUTO) 10.8 % (1.7-9.3); NEUTROPHILS # (AUTO) 4.3 K/uL (1.8-7.7); NEUTROPHILS % (AUTO) 56.3 % (42.2-75.2); PLATELET COUNT (AUTO) 447 K/uL (140-450); RED BLOOD CELL COUNT(AUTO) 3.77 MIL/uL (4.20-6.10); RED CELL DISTRIBUTION WIDTH 15.2 % (11.6-13.7); WHITE BLOOD COUNT (AUTO) 7.7 K/uL (4.8-10.8)
[2021-01-10 08:00] VITALS: BP 127/76
[2021-01-10] MEDS: lisinopriL 5 MG TAB PO SCH (09:34)
[2021-01-10] MEDS: HALOPERIDOL 5 MG TAB PO SCH ×3 (09:34→17:37)
[2021-01-10] MEDS: PANTOPRAZOLE 40 MG TABEC PO SCH (09:34)
[2021-01-10] MEDS: NACL 0.9% 1,000 ML IV SCH (13:06)
[2021-01-10 15:23] VITALS: BP 121/70
[2021-01-10 16:00] VITALS: BP 120/69
== END 2021-01-10 21:45 | DRG 720 ==
LOC: MED 07:18 → MTU 12:14 → OBSVTOIN 01-06 10:50
PROVIDERS: ADMIT Hospitalist; ATTEND Hospitalist
DX: A41.9 Sepsis, unspecified organism (principal); E87.2 Acidosis; J18.9 Pneumonia, unspecified organism; G10 Huntington's disease; Z20.822 Contact with and (suspected) exposure to COVID-19; I10 Essential (primary) hypertension; F15.90 Other stimulant use, unspecified, uncomplicated; Z88.8 Allergy status to other drugs, medicaments and biological substances; Z79.899 Other long term (current) drug therapy
CPT/HCPCS: 96361; 96365; 96367; 99285; G0378; 36415; 71045; 80048; 80305; 83605; 83735; 84100; 84484; 85025; 87040; 87081; 92526; 92610; 93005; 97110; 97112; 97116; 97163-GP; 97530; J0456; J0696; J1630; J7060